=== PATIENT | male | born 1975 | race African-American/Black ===

== ENCOUNTER 2024-05-18 18:11 | Emergency (ER) | payer OTHER ==
[~2024-05-18] VITALS: Ht 180.3 cm; Wt 111.1 kg
[~2024-05-18 18:11] MED LIST: AVELOX ABC PAC400 MG PO; CARAFATE SU1 G/10 ML PO; DOLOGESIC CAPLE1 TAB PO; PEPCID20 MG PO; PEPCID40 MG PO; PROTONIX40 M1 PO; TOPROL XL50 M1; TRAMADOL HCL-AP1 TAB PO; VASOTEC20 MG
[2024-05-18] MEDS ORDERED: NORVASC5 MG PO (18:38)
[2024-05-18] MEDS ORDERED: CEFTRIAXONE SODIUM 1,000 MG VIAL IM STA (22:30)
[2024-05-18] MEDS ORDERED: DEXAMETHASONE SODIUM PHOSPHATE 4 MG/ML VIAL IM STA (22:30)
[2024-05-18] MEDS ORDERED: AMOX-CLAV 875-1 EAC1 PO (22:38)
== END 2024-05-18 22:46 | disposition home or self-care (01) ==
LOC: ER 18:12
DX: R22.0 Localized swelling, mass and lump, head (principal); I10 Essential (primary) hypertension